=== PATIENT | female | born 1935 | race Caucasian/White ===

== ENCOUNTER 2020-09-30 11:10 | Emergency (ER) | payer OTHER ==
[~2020-09-30] VITALS: Ht 152.4 cm; Wt 79.4 kg
--- NOTE | ~2020-09-30 | EMS ---
[address] [address] EMS Patient Care Report Name: ESMER TOTH Room #: DEP AMBERLY Aceves#: [id number] Admission: 09/30/20 Attend Phys: Discharge: 09/30/20 Date of : 39 Report #: [id number] THIS REPORT FOR: //name// Report Transmitted: 10/05/2020 11:06 EMS Care Summary [place], [place]/[facility] Incident [id number] @ 09/30/2020 10:23 Incident Location [address] [place] [address] Patient ESMER TOTH Female, 84 Years 1935 Patient Address [address] [place] [address] [address] [place] [address] Patient History Dementia,Diabetes,Hypertension (HTN), Patient Allergies Other drug allergy, Patient Medications Aspirin, Chief Complaint FALL Disposition Transported No Lights/[place] Dispatch Reason Falls Transported To [facility] Narrative UPON ARRIVAL WE FOUND OUR 84 YEAR OLD FEMALE PATIENT, WITH A HX OF DEMENTIA, SITTING IN A W/C IN HER ROOM AT [facility] WITH STAFF AND ALS P30 BY HER SIDE COMPLAINING OF A FOREHEAD HEMATOMA SINCE HAVING AN UNWITNESSED FALL FROM HER W/C. THE PATIENT IS A&O TO HER BASELINE AND IS NOT ON ANY BLOOD THINNERS [address] [address] EMS Patient Care Report Name: ESMER TOTH Room #: DEP AMBERLY Aceves#: [id number] Admission: 09/30/20 Attend Phys: Discharge: 09/30/20 Date of : 39 Report #: [id number] PER THE RN. WE TRANSPORTED THE PATIENT TO [facility] SINCE [facility] WAS ON HIGH VOLUME. Initial Vitals @10:46GCS: 14, @10:37P: 82,R: 18,BP: 106/59,Pain: 4/10,GCS: 14,SpO2: 90,Revised Trauma: 12, @11:01P: 80,R: 18,BP: 110/60,Pain: 4/10,GCS: 14,SpO2: 91,Revised Trauma: 12, Assessments @10:32MENTAL:Place Oriented,Time Oriented,Event Oriented,Person Oriented,SKIN:HEENT:Eyes: Right Pupil: 3-mm,Eyes: Left Pupil: 3-mm,Head/Face: Other,Neck/Airway: No Abnormalities,LUNG SOUNDS:General: Other,ABDOMEN:General: Other,PELVIS//GI:No Abnormalities,EXTREMITIES:Left Arm: No Abnormalities,Right Arm: No Abnormalities,Left Leg: No Abnormalities,Right Leg: No Abnormalities,PULSE:Pedal: 2+ Normal,Radial: 2+ Normal,NEURO:No Abnormalities, Impression Injury of Head Procedures @10:32ALS AssessmentResponse: UnchangedSucceeded@10:33Spinal Motion RestrictionResponse: UnchangedSucceeded Timeline 10:21,Call Received 10:21,Dispatch Notified 10:23,Dispatched 10:24,En Route 10:29,On Scene 10:32,At Patient 10:32,ALS Assessment,Response: UnchangedSucceeded, 10:33,Spinal Motion Restriction,Response: UnchangedSucceeded, 10:37,BP: 106/59 M,PULSE: 82,RR: 18 R,SPO2: 90 Ox,ETCO2: ,BG: ,PAIN: 4,GCS: 14, 10:39,Depart Scene 10:46,BP: / M,PULSE: ,RR: R,SPO2: Ox,ETCO2: ,BG: ,PAIN: ,GCS: 14, 11:01,BP: 110/60 M,PULSE: 80,RR: 18 R,SPO2: 91 Ox,ETCO2: ,BG: ,PAIN: 4,GCS: 14, 11:03,At Destination 11:17,Call Closed Disclaimer v1.1 Copyright 2020 [employer] This EMS Care Summary contains data elements from the applicable legal record (which may be displayed differently). It is designed to provide pertinent information for the following purposes: continuity of care, clinical quality, and state data reporting. The complete legal record is available to ED staff and administrators of the receiving hospital in [employer] Patient Tracker. All data [facility] [address] [place] [address] EMS Patient Care Report Name: ASHLIEEUNESMER Room #: DEP AMBERLY Aceves#: [id number] Admission: 09/30/20 Attend Phys: Discharge: 09/30/20 Date of : 39 Report #: [id number] is provided "as is."
[2020-09-30] MEDS ORDERED: DEPAKOTE ER500 M1 PO (11:23)
[2020-09-30] MEDS ORDERED: TYLENOL325 M1 PO (11:23)
[2020-09-30] MEDS ORDERED: BUSPIRONE HCL5 MG PO (11:23)
[2020-09-30] MEDS ORDERED: ASA81BEC PO (11:23)
[2020-09-30] MEDS ORDERED: EXELON1 EAC1 TRANSDERM (11:24)
[2020-09-30] MEDS ORDERED: GABAPENTIN600 M1 PO (11:24)
[2020-09-30] MEDS ORDERED: LEVOTHYROXINE150 MC1 PO (11:25)
[2020-09-30] MEDS ORDERED: LEVEMIR100 UNIT/1 SUBQ (11:25)
[2020-09-30] MEDS ORDERED: LOSARTAN POTAS100 MG PO (11:26)
[2020-09-30] MEDS ORDERED: METFORMIN HCL1000 M1 PO (11:27)
[2020-09-30] MEDS ORDERED: MAGNESIUM400 MG PO (11:27)
[2020-09-30] MEDS ORDERED: MELATONIN3 M1 PO (11:27)
[2020-09-30] MEDS ORDERED: MIRALAX119 GM PO (11:27)
[2020-09-30] MEDS ORDERED: NAMENDA XR28 MG PO (11:28)
[2020-09-30] MEDS ORDERED: SUPER THERAVIT1 EACH PO (11:28)
[2020-09-30] MEDS ORDERED: QUETIAPINE FUM200 MG PO (11:28)
[2020-09-30] MEDS ORDERED: TRAMADOL 50 MG50 MG PO (11:29)
[2020-09-30] MEDS ORDERED: TRAZODONE HCL100 MG PO (11:29)
[2020-09-30] MEDS ORDERED: FLOMAX0.4 MG PO (11:29)
[2020-09-30 14:32] VITALS: BP 123/92
== END 2020-09-30 15:20 ==
LOC: ER 11:10
DX: S00.83XA Contusion of other part of head, initial encounter (principal); M25.561 Pain in right knee; M25.562 Pain in left knee; Z79.891 Long term (current) use of opiate analgesic; Z79.82 Long term (current) use of aspirin; Z79.4 Long term (current) use of insulin; Z79.1 Long term (current) use of non-steroidal anti-inflammatories (NSAID); Z79.899 Other long term (current) drug therapy; Z88.6 Allergy status to analgesic agent; Z88.1 Allergy status to other antibiotic agents; Z88.0 Allergy status to penicillin; Z88.2 Allergy status to sulfonamides; Z88.8 Allergy status to other drugs, medicaments and biological substances; W07.XXXA Fall from chair, initial encounter; Y93.89 Activity, other specified; Y92.89 Other specified places as the place of occurrence of the external cause; Y99.8 Other external cause status